=== PATIENT | male | born 1975 | race African-American/Black ===

== ENCOUNTER 2016-09-23 16:52 | Emergency (ER) | payer OTHER ==
[2016-09-23 17:04] VITALS: BP 155/87
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
== END 2016-09-23 18:35 | disposition home or self-care (01) ==
LOC: ED 16:52
DX: S82.891A Other fracture of right lower leg, initial encounter for closed fracture (principal); I10 Essential (primary) hypertension; W23.1XXA Caught, crushed, jammed, or pinched between stationary objects, initial encounter; F17.290 Nicotine dependence, other tobacco product, uncomplicated
CPT/HCPCS: 99282